=== PATIENT | male | born 1980 | race Two or more races ===

== ENCOUNTER 2022-10-30 00:03 | Emergency (ER) | payer OTHER ==
[~2022-10-30] VITALS: Ht 167.6 cm; Wt 70.0 kg
[2022-10-30 00:39] LABS: Hematocrit 49.9 % (41.0-53.0); Hemoglobin 16.8 g/dL (13.5-17.5); Mean Corpuscular Hemoglobin 31.6 pg (28.0-32.0); Mean Corpuscular Hgb Conc. 33.6 g/dL (32.0-36.0); Red Cell Distribution Width 13.6 % (11.8-14.3); White Blood Cell 14.5 10^3/uL (4.4-10.8)
[2022-10-30] MEDS: SODIUM CHLORIDE 0.9% 1,000 ML IV ONE ×2 (00:45→02:58)
[2022-10-30 00:47] LABS: Basophils % (manual) 0 (0.0-2.0); Blast Cells 0; Eosinophils % (manual) 0 (0-7); Metamyelocytes % 0; Myelocytes % 0; Promyelocytes % 0; Reactive Lymphocytes 0
[2022-10-30 00:56] LABS: Albumin 3.9 g/dL (3.4-5.0); BUN/Creatinine Ratio 14.7; Calcium 9.4 mg/dL (8.5-10.1); Magnesium 2.5 mg/dL (1.6-2.6)
[2022-10-30 00:59] LABS: Bilirubin, Total 0.4 mg/dL (0.2-1.0); Lactic Acid w/Reflex 4.6 mmol/L (0.4-2.0)
[2022-10-30] MEDS ORDERED: NALOXONE HCL 1MG/ML 2ML SYRINGE IV ONE ×3 (01:15→08:15)
[2022-10-30 02:21] LABS: Band Neutrophils % (manual) 3; Monocytes % (manual) 8 (0-12)
[2022-10-30 02:22] LABS: Lymphocytes % (manual) 52 (10.0-50.0)
[2022-10-30] MEDS ORDERED: SODIUM CHLORIDE 0.9% 2,000 ML IV ONE (08:15)
[2022-10-30 16:42] VITALS: BP 131/84
== END 2022-10-30 16:42 | disposition home or self-care (01) ==
LOC: ER 00:03
DX: T50.901A Poisoning by unspecified drugs, medicaments and biological substances, accidental (unintentional), initial encounter (principal); R41.82 Altered mental status, unspecified; R07.89 Other chest pain; Y92.89 Other specified places as the place of occurrence of the external cause
CPT/HCPCS: 36415; 71045; 80053; 83605; 83735; 84484; 85007; 85027; 96361; 96374; 96376; 99285; J2310; J7030